=== PATIENT | male | born 1990 | race African-American/Black ===

== ENCOUNTER 2017-07-11 12:02 | Emergency (ER) | payer MEDICARE, MEDICAID ==
[~2017-07-11] VITALS: Ht 177.8 cm; Wt 90.0 kg
[2017-07-11] MEDS ORDERED: ACETAMINOPHEN WITH CODEINE 300/30MG TABLET PO ONE (17:00)
[2017-07-11 17:33] VITALS: BP 148/92
== END 2017-07-11 17:44 | disposition home or self-care (01) ==
LOC: ER 12:29
DX: M79.661 Pain in right lower leg (principal); G89.29 Other chronic pain; F31.9 Bipolar disorder, unspecified; Z59.0 Homelessness; F41.0 Panic disorder [episodic paroxysmal anxiety]; F17.210 Nicotine dependence, cigarettes, uncomplicated
CPT/HCPCS: 99284